=== PATIENT | male | born 1955 | race Asian ===

== ENCOUNTER 2017-06-03 11:21 | Emergency (ER) | payer OTHER ==
[~2017-06-03] VITALS: Ht 170.2 cm; Wt 63.5 kg
[~2017-06-03 11:21] MED LIST: NKM; ZOFRAN4 MG ORAL
[2017-06-03 13:05] VITALS: BP 153/81
--- NOTE | 2017-06-03 13:41 | Diagnostic Imaging Report ---
Indication: Pain Comparison: None Findings: 3 views of the right foot were obtained. No acute fractures, malalignment, erosions or periostitis are identified. Bone mineralization is within normal limits. There is a plantar calcaneal spur at the calcaneal tuberosity. Soft tissues are unremarkable. Impression: No acute injury
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
== END 2017-06-03 13:05 | disposition home or self-care (01) ==
LOC: EMR 11:50
DX: S90.31XA Contusion of right foot, initial encounter (principal); W51.XXXA Accidental striking against or bumped into by another person, initial encounter; Y92.89 Other specified places as the place of occurrence of the external cause
CPT/HCPCS: 99283